=== PATIENT | female | born 1975 | race Caucasian/White ===

== ENCOUNTER 2016-11-20 07:57 | Outpatient (CLI) | payer OTHER ==
--- NOTE | 2016-11-20 15:28 | DIAGNOSTIC IMAGING REPORT ---
PROCEDURE: US ABDOMEN ULTRASOUND-COMPLETE INDICATION: LOWER ABD PAIN TECHNIQUE: Wright scale and color Doppler sonographic images of the abdomen were obtained without comparison. COMPARISON: None. FINDINGS: The liver is normal in size, contour, and echotexture. No mass or intrahepatic biliary dilatation. The gallbladder is filled with stones. The wall is normal thickness measuring 1.6 mm No pericholecystic fluid or Menjivar sign. The extrahepatic common duct is normal measuring 2.9 mm The visualized pancreas is normal without ductal dilatation or peripancreatic fluid collection. The abdominal aorta is normal in its course and caliber. The retrohepatic inferior vena cava is patent. There is appropriate hepatopetal flow in the portal vein. The right kidney measures 11.2 cm in length. The left kidney measures 11.4 cm in length. Both kidneys demonstrate normal morphology and cortical thickness without hydronephrosis, cyst, solid mass, or shadowing calculus. Color Doppler imaging demonstrates normal blood flow in each kidney. The spleen is normal in size measuring 11.8 cm in length. There is no perihepatic or perisplenic ascites. IMPRESSION: 1. Cholelithiasis
== END 2016-11-20 23:00 ==
LOC: US SRH 07:57
DX: K80.20 Calculus of gallbladder without cholecystitis without obstruction (principal)

== ENCOUNTER 2016-11-20 21:18 | Emergency (ER) | payer OTHER ==
--- NOTE | 2016-11-21 00:31 | ED CLINICAL REPORT ---
Clinical Report - Physicians/Mid Levels [facility] [address] [place] [address] 11/20/2016 21:18 Patient: ALPHONSO JIMÉNEZ Time Seen: 21:32. Arrived- By private vehicle. Historian- patient. HISTORY OF PRESENT ILLNESS Chief Complaint: ABDOMINAL PAIN. At its maximum, severity described as moderate. When seen in the E.D., severity described as moderate. Modifying factors- (BM and sometimes food worsen; nothing improves). It is described as "pain" and it is described as located in the periumbilical area. This started about 1 week ago. It is gone now. No nausea, loss of appetite or vomiting. She has had diarrhea. Similar symptoms previously: None. Recent medical care: The patient was seen recently at another facility. ( PT has already had labs and US done , showing cholelithiasis. She was sent here by the urgent care provider, who she states told her she may have diverticulitis.). REVIEW OF SYSTEMS No constipation, black stools, hematemesis, difficulty with urination or pain with urination. No urinary frequency, bloody stools, fever, headache or sore throat. No blurred vision, chest pain, difficulty breathing, cough or joint pain. No skin rash, chills or back pain. Denies current . All systems otherwise negative, except as recorded above. PAST HISTORY Problems: Diabetes Mellitus. Additional Surgeries: no known surgeries. Medications: MetFORMIN HCl Oral. Allergies: No Known Drug Allergy. SOCIAL HISTORY Former smoker. Occasional alcohol use. No drug use. ADDITIONAL NOTES The nursing notes have been reviewed. PHYSICAL EXAM Vital Signs: 11/20/2016 21:23 BP: 140/89. HR: 95. RR: 16. O2 saturation: 99%. Temp: 97.8 F. Have been reviewed. Appearance: Alert. Oriented X3. No acute distress. Eyes: Pupils equal, round and reactive to light. Eyes normal inspection. ENT: Nose normal. Neck: Normal inspection. CVS: Normal heart rate and rhythm. Heart sounds normal. Pulses normal. Respiratory: No respiratory distress. Breath sounds normal. Abdomen: Soft. Mild tenderness in the periumbilical area. No guarding or rebound tenderness. Back: Normal inspection. No CVA tenderness. Skin: Skin warm and dry. Normal skin color. No rash. Normal skin turgor. Extremities: Extremities exhibit normal ROM. No lower extremity edema. Neuro: Oriented X 3. No motor deficit. No sensory deficit. LABS, X-RAYS, AND EKG Abdominal CT: Normal aorta. Multiple gallstones in the gallbladder (no cholecystitis). Normal liver, spleen, pancreas, adrenals and kidneys. Uterus normal. Adnexa normal. Bladder normal. Appendix normal. No mass. No free fluid. No bony lesion. No diverticulitis. Study type: abdomen and pelvis. Abdominal CT performed with IV contrast. The study was independently viewed by me, interpreted by the radiologist and contemporaneously by me and discussed with the radiologist. Prior studies were not available for comparison. Laboratory Tests: CBC w Diff: (AUGUSTINE: 11/20/2016 21:27) ( [facility] 11/20/2016 21:47) Final results Test Result Flag Units (Reference) WHITE BLOOD COUNT 10.7 K/uL (4.5-11.5) RED BLOOD COUNT 4.89 M/uL (4.00-5.20) HEMOGLOBIN 14.3 gm/dL (12.0-16.0) HEMATOCRIT 43.4 % (36.0-46.0) MEAN CELL VOLUME 89 fL (80-100) MEAN CORPUSCULAR HGB 29 pg (26-34) MEAN CORPUSCULAR HGB CONC 33 g/dL (31-37) RED CELL DISTRIBUTION WIDTH 13.7 % (11.6-14.8) PLATELET COUNT 336 K/uL (150-400) NEUTROPHIL % 69.6 % (50-75) LYMPH % 24.8 L % (25-40) MONO % 3.7 % (3-14) EOSINOPHIL % 1.8 % (0-4) BASOPHIL % 0.1 % (0-2) CMP: (AUGUSTINE: 11/20/2016 21:27) ( [facility] 11/20/2016 22:28) Final results Test Result Flag Units (Reference) GLUCOSE 107 mg/dL (70-110) BUN 10 mg/dL (7-18) CREATININE 0.9 mg/dL (0.6-1.3) Estimated GFR >60 mL/min Estimated GFR- >60 mL/min Note: Persistent reduction over 3 months in eGFR<60 mL/min/1.73 m2 defines CKD. Patients with eGFR values>=60 mL/min/1.73 m2 may also have CKD if evidence ofpersistent proteinuria. Additional information may be foundat www.kidney.org. SODIUM 139 mmol/L (136-145) POTASSIUM 3.6 mmol/L (3.5-5.1) CHLORIDE 102 mmol/L (98-107) CARBON DIOXIDE 26 mmol/L (21-32) CALCIUM 9.5 mg/dL (8.5-10.1) TOTAL PROTEIN 7.5 g/dL (6.4-8.2) ALBUMIN 3.8 g/dL (3.3-5.0) BILIRUBIN, TOTAL 0.4 mg/dL (0.0-1.0) ALKALINE PHOSPHATASE 65 U/L (46-116) AST (SGOT) 14 L U/L (15-37) ALT (SGPT) 24 U/L (12-78) . Pulse Oximetry: 11/20/2016 21:23 O2 saturation: 99%. (FIO2 - room air). Interpretation: normal. PROGRESS AND PROCEDURES Course of Care: I d/w pt that the location of her pain is nonspecific. The most likely source is her gall bladder. However, pt was convinced this could not be the case, because the urgent care provider had suggested diverticulitis, and because BMs make it worse. I did d/w pt that the only diagnostic test we have in the ED that has not already been done is CT scan, which would give us a view of the other organs and structures in the abdomen. This was done, and negative, other than gallstones. Pt stated her doctor has put in a referral for surgery follow-up. We discussed dietary modifications, but pt stated she is on the ketogenic diet, and she does not want to alter this in any way. We have discussed signs of cholecystitis and indications for return. Patient counseled in person regarding the patient's stable condition, test results, diagnosis and need for follow-up. Concerns were addressed. Old medical records reviewed. Disposition: Discharged. Condition: stable. CLINICAL IMPRESSION Acute periumbilical abdominal pain of unknown cause. Biliary colic with multiple gallstones. No cholecystitis. INSTRUCTIONS Drink plenty of fluids. (Your CT scan shows gall stones, but no other abnormalities. There is no emergent condition causing your symptoms, but your gall bladder certainly can cause episodes of pain. Please follow up, as planned, to discuss having your gall bladder removed.). Warnings: Further evaluation is necessary. It is very important to follow up with a physician. GENERAL WARNINGS: Return or contact your physician immediately if your condition worsens or changes unexpectedly, if not improving as expected, or if other problems arise. Your Current Medications: CONTINUE TAKING THE FOLLOWING MEDICATIONS: MetFORMIN HCl Oral. Prescription Medications: Hydrocodone/APAP 5mg / 325mg: take 1-2 orally every 6 hours as needed for pain. Dispense twenty (20). No refill. Follow-up: Follow up with a surgeon. Call for the next available appointment. Reason for referral: Follow up for abdominal pain and gall stones. Understanding of the discharge instructions verbalized by patient. (Electronically signed by Shey Rogers MD 11/24/2016 9:31)
--- NOTE | 2016-11-21 00:32 | ED NURSING NOTES ---
Clinical Report - Nurses [facility] [place] [address] 11/20/2016 21:18 Patient: ALPHONSO JIMÉNEZ TRIAGE Triage time 21:23. Acuity: LEVEL 3. Chief Complaint: ABDOMINAL PAIN and DIARRHEA. 21:26 11/20/16. Alert. No acute distress. BENJAMIN COMA SCORE: Wor[place] Coma Scale: 15- eyes open spontaneously (4); best verbal response- oriented x 4 (5); best motor response- obeys commands (6). --21:26 Susan Engel R.N. 21:23 11/20/16. BP: 140/89. HR: 95. RR: 16. O2 saturation: 99% on room air. Temp: 97.8 F (oral). Pain level now 0/10. --21:26 Susan Engel R.N. Weight: 93.4 kg stated. Height/Length: 64 inches Per Patient. BMI: 35.4. --21:24 Susan Engel R.N. Medications MetFORMIN HCl Oral. --21:25 Susan Engel R.N. Allergies No Known Drug Allergy. --21:25 Susan Engel R.N. Medication/allergy information source: the patient. --21:26 Susan Engel R.N. History Arrived by private vehicle. Historian: patient. Primary physician ([facility]). ( abd pain x1 week. Pain 7/10 following eating or having a BM.). Onset. (1 weeks ago). 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 PAST MEDICAL HX: Last normal menstrual period now. Denies current . SOCIAL HX: Former smoker, end date 2014. Occasional alcohol use. No drug use. ABUSE ASSESSMENT: Abuse assessment: The patient was asked "Do you feel safe in your home?". No report of abuse. FALL RISK ASSESSMENT: Fall risk assessment completed. No fall risk identified. NUTRITIONAL RISK ASSESSMENT: The nutritional risk assessment revealed no deficiencies. FUNCTIONAL ASSESSMENT: Functional assessment: no impairments noted. LEARNING NEEDS ASSESSMENT: The learning needs assessment revealed no barriers. SKIN INTEGRITY ASSESSMENT: Skin integrity risk assessment completed. No skin integrity risk identified. --21:26 Susan Engel R.N. ( Last BM this afternoon). Last oral intake by patient was (8 hours ago). --21:27 Susan Engel R.N. PROBLEMS: Diabetes Mellitus. --21:25 Susan Engel R.N. ADDITIONAL SURGERIES: no known surgeries. Interventions ID band on patient. To treatment room. --21:26 Susan Engel R.N. PHYSICAL ASSESSMENT Ambulatory to room. GENERAL / NEURO / PSYCH: Alert. Oriented X 4. Appears in no acute distress. HEENT: Mucous membranes are pink. RESPIRATORY: Respirations not labored. CVS: Capillary refill less than 2 seconds. GI / : Abdomen soft and nontender. SKIN: Skin is warm and dry. --21:27 Susan Engel R.N. NURSING PROGRESS NOTES :11/20/16. The plan of care for this patient has been created. Patient gowned. Head of bed elevated. Call light placed in reach. Bed placed in lowest position. Brakes of bed on. Patient ready for evaluation- chart flagged. --21:27 Susan Engel R.N. 21:30 11/20/2016 Site #1 started via IV in the left antecubital space with an 20g angiocath, with aseptic technique and good blood return; one attempt. Blood drawn: rainbow set. Labeled in the presence of the patient and sent to the lab. Saline lock flushed with 10 mL saline. --21:30 Mary Reeves R.N. 21:37 11/20/2016 Started bag #1 1000 mL IV Fluids IV NS (Saline); at 999 mL/hr over 1 hour(s) via site #1 via IV pump. Allergies verified and confirmed 5 rights. IV patency established. IV site checked: no pain, redness, or swelling. IV flushed thoroughly pre- and post-medication administration. --21:37 Mary Reeves R.N. 22:40 11/20/16. Assisted patient to bathroom, to ambulate and back to bed; tolerated well. The patient reports no complaints and she is calm and resting quietly. --22:40 Susan Engel R.N. 22:50 11/20/16. Checked patient name, birthdate and medical record number: patient confirmed. Instructions provided to collect clean catch urine and patient verbalized understanding. Clean catch urine collected with return of yellow-colored clear urine; odor is normal; sample sent to lab for urinalysis and culture. Specimen labeled in the presence of the patient. --22:51 Juan Pablo Lopes R.N. 23:28 11/20/16. ( vitals deferred, Pt in CT). --23:28 Susan Engel R.N. 23:30 11/20/16. Patient walked back to ED from CT with tech. --23:30 Susan Engel R.N. 23:33 11/20/16. BP: 135/95. HR: 82. RR: 17. Pain level now 0/10. --23:33 Susan Engel R.N. 23:45 11/20/2016 IV Fluids IV NS Discontinued: bag #1 infused. Total amount infused: 1000 mL. IV patency established. IV site checked: no pain, redness, or swelling. IV flushed thoroughly. --00:45 Susan Engel R.N. DISPOSITION / DISCHARGE 00:39 11/21/2016 Site #1 removed upon discharge. Catheter intact. Bandage applied. --00:44 Susan Engel R.N. 00:43 11/21/16. Departure time: 1241. Condition at departure: unchanged and stable. ( MD aware of discharge BP). No learning barriers present. Discharge instructions provided and reviewed with the patient. Reviewed medication(s) side effects, precautions, dosing and course information. Prescription(s) given to the patient. Patient verbalized understanding. Written instructions provided in Turkish. The patient was discharged by the physician. She was discharged home. She left the Emergency Department ambulatory and via private vehicle. Patient driving. --00:44 Susan Engel R.N. 00:42 11/21/16. BP: 156/110. HR: 89. RR: 18. O2 saturation: 100% on room air. Temp: 98.6 F (oral). Pain level now 0/10. --00:44 Susan Engel R.N. Locked/Released at 11/21/2016 5:53 by Juan Pablo Lopes R.N.
--- NOTE | 2016-11-21 00:32 | ED ORDER SUMMARY ---
..... Patient: ALPHONSO JIMÉNEZ OrderSheet [facility] VisitID: [id number] [place] [address] 40y, F Registration Date/Time: 11/20/2016 ORDER SHEET Weight: 93.4 kg (stated) Allergies: No Known Drug Allergy GENERAL ORDERS: CBC w Diff Urgent (21:33 11/20/2016 Mishel GRIMM) (Ack 21:38 AMcQuoid ER Tech1) (21:59 MWinterer R.N.) CMP Urgent (21:33 11/20/2016 Mishel GRIMM) (Ack 21:38 AMcQuoid ER Tech1) (21:59 MWinterer R.N.) CT Abd/Pel w Cont (No) (N/A) Urgent (23:07 11/20/2016 Mishel GRIMM) (Ack 23:15 AMcQuoid ER Tech1) (23:28 KWilliams R.N.) MEDICATION ORDERS: IV FLUIDS: IV NS : initial bolus 1000 mL (1000 mL/hr), then none - (NOW) (21:33 11/20/2016 Mishel GRIMM) (Ack 21:33 MWinterer R.N.) (21:37 MWinterer R.N.) ORDER SHEET NOTES: [Electronically signed by Juan Pablo Lopes R.N. (05:53 11/21/2016)] [Electronically signed by Shey Rogers MD (09:31 11/24/2016)] [Electronically locked/signed by Juan Pablo Lopes R.N. (05:53 11/21/2016)]
--- NOTE | 2016-11-21 00:32 | ED ORDER SUMMARY ---
..... Patient: ALPHONSO JIMÉNEZ OrderSheet [facility] VisitID: [id number] [place] [address] 40y, F Registration Date/Time: 11/20/2016 ORDER SHEET Weight: 93.4 kg (stated) Allergies: No Known Drug Allergy GENERAL ORDERS: CBC w Diff Urgent (21:33 11/20/2016 Mishel GRIMM) (Ack 21:38 AMcQuoid ER Tech1) (21:59 MWinterer R.N.) CMP Urgent (21:33 11/20/2016 Mishel GRIMM) (Ack 21:38 AMcQuoid ER Tech1) (21:59 MWinterer R.N.) CT Abd/Pel w Cont (No) (N/A) Urgent (23:07 11/20/2016 Mishel GRIMM) (Ack 23:15 AMcQuoid ER Tech1) (23:28 KWilliams R.N.) MEDICATION ORDERS: IV FLUIDS: IV NS : initial bolus 1000 mL (1000 mL/hr), then none - (NOW) (21:33 11/20/2016 Mishel GRIMM) (Ack 21:33 MWinterer R.N.) (21:37 MWinterer R.N.) ORDER SHEET NOTES: [Electronically signed by Juan Pablo Lopes R.N. (05:53 11/21/2016)] [Electronically signed by Shey Rogers MD (09:31 11/24/2016)] [Electronically locked/signed by Juan Pablo Lopes R.N. (05:53 11/21/2016)]
--- NOTE | 2016-11-21 00:34 | DIAGNOSTIC IMAGING REPORT ---
PROCEDURE: CT ABD/PELVIS WITH CONTRAST INDICATION: Upper and lower abdominal pain. Gallstones. TECHNIQUE: Noncontrast axial images with sagittal and coronal reformations. COMPARISON: Comparison is made to abdominal ultrasound on 11/20/2016. FINDINGS: ABDOMEN: Gallbladder is contracted with multiple gallstones. No evidence of gallbladder wall thickening. Liver, spleen, pancreas, kidneys, and aorta are normal. Bowel pattern is normal, including appendix. Mild levoscoliosis and degenerative changes of the lumbar spine. PELVIS: Mild to moderate sigmoid diverticulosis, but no evidence of diverticulitis. There is a T-shaped IUD which is located in the endocervix and protrudes into the upper vagina. Uterus and adnexal structures are otherwise normal. IMPRESSION: 1. Cholelithiasis (multiple gallstones) with contracted gallbladder (appears chronic). 2. Otherwise negative CT abdomen. 3. Mild levoscoliosis and degenerative change of the lumbar spine. 4. Mild to moderate sigmoid diverticulosis, but no evidence of diverticulitis. 5. There is a T-shaped IUD which is located in the endocervix (suboptimal position). 6. Findings discussed with Dr. Shey Rogers. All CT scans at this facility use dose modulation, iterative reconstruction, and/or weight-based dosing when appropriate to reduce radiation dose to as low as reasonably achievable.
--- NOTE | 2016-11-24 09:31 | ED DISCHARGE INSTRUCTIONS ---
Patient: ALPHONSO JIMÉNEZ General Instructions [facility] VisitID: [id number] [place] [address] 40y, F Registration Date/Time: 11/20/2016 Acute periumbilical abdominal pain of unknown cause. Biliary colic with multiple gallstones. No cholecystitis. INSTRUCTIONS Drink plenty of fluids. (Your CT scan shows gall stones, but no other abnormalities. There is no emergent condition causing your symptoms, but your gall bladder certainly can cause episodes of pain. Please follow up, as planned, to discuss having your gall bladder removed.). Warnings: Further evaluation is necessary. It is very important to follow up with a physician. GENERAL WARNINGS: Return or contact your physician immediately if your condition worsens or changes unexpectedly, if not improving as expected, or if other problems arise. Your Current Medications: CONTINUE TAKING THE FOLLOWING MEDICATIONS: MetFORMIN HCl Oral. Prescription Medications: Hydrocodone/APAP 5mg / 325mg: take 1-2 orally every 6 hours as needed for pain. Dispense twenty (20). No refill. Follow-up: Follow up with a surgeon. Call for the next available appointment. Reason for referral: Follow up for abdominal pain and gall stones. Understanding of the discharge instructions verbalized by patient. ADDITIONAL INFORMATION Abdominal Pain, Unknown Cause (Female) The exact cause of your abdominal (stomach) pain is not certain. This does not mean that this is something to worry about, or the right tests were not done. Everyone likes to know the exact cause of the problem, but sometimes with abdominal pain, there is no clear-cut cause, and this could be a good thing. The good news is that your symptoms can be treated, and you will feel better. Your condition does not seem serious now; however, sometimes the signs of a serious problem may take more time to appear. For this reason,it is important for you to watch for any new symptoms, problems,or worsening of your condition. Over the next few days, the abdominal pain may come and go, or be continuous. Other common symptoms can include nausea and vomiting. Sometimes it can be difficult to tell if you feel nauseous, you may just feel bad and not associate that feeling with nausea. Constipation, diarrhea, and a fever may go along with the pain. The pain may continue even if treated correctly over the following days. Depending on how things go, sometimes the cause can become clear and may require further or different treatment. Additional evaluations, medications, or tests may be needed. Home care Your health care provider may prescribe medications for pain, symptoms, or an infection. Follow the health care provider's instructions for taking these medications. General care Rest until your next exam. No strenuous activities. Try to find positions that ease discomfort. A small pillow placed on the abdomen may help relieve pain. Something warm on your abdomen (such as a heating pad) may help, but be careful not to burn yourself. Diet Do not force yourself to eat, especially if having cramps, vomiting, or diarrhea. Water is important so you do not get dehydrated. Soup may also be good. Sports drinks may also help, especially if they are not too acidic. Make sure you don't drink sugary drinks as this can make things worse. Take liquids in small amounts. Do not guzzle them. Caffeine sometimes makes the pain and cramping worse. Avoid dairy products if you have vomiting or diarrhea. Don't eat large amounts at a time. Wait a few minutes between bites. Eat a diet low in fiber (called a low-residue diet). Foods allowed include refined breads, white rice, fruit and vegetable juices without pulp, tender meats. These foods will pass more easily through the intestine. Avoid whole-grain foods, whole fruits and vegetables, meats, seeds and nuts, fried or fatty foods, dairy, alcohol and spicy foods until your symptoms go away. Follow-up care Follow up with your health care provider as instructed, or if your pain does not begin to improve in the next 24 hours. When to seek medical care Seek prompt medical care if any of the following occur: Pain gets worse or moves to the right lower abdomen New or worsening vomiting or diarrhea Swelling of the abdomen Unable to pass stool for more than three days Fever of 100.4F (38C) or higher, or as directed by your healthcare provider. Blood in vomit or bowel movements (dark red or black color) Jaundice (yellow color of eyes and skin) Weakness, dizziness Chest, arm, back, neck or jaw pain Unexpected vaginal bleeding or missed period Call 911 Call emergency services if any of the following occur: Trouble breathing Confusion Fainting or loss of consciousness Rapid heart rate Seizure GallstonesWith Biliary Colic [Confirmed Dx] The abdominal pain that you have today is due to spasm of the gallbladder. The gallbladder is a small sac under the liver which stores and releases bile. Bile is a fluid that aids in the digestion of fat. A gallstone may form inside the gallbladder and block the flow of bile fluid. This causes mild to severe crampy pain in the mid or right upper abdomen with nausea and vomiting. Home Care: Rest in bed and follow a clear liquid diet until feeling better. If pain or nausea medicine was given to help with your symptoms, take these as directed. Fat in your diet makes the gallbladder contract and may cause increased pain. Therefore, avoid fat in your diet over the next two days and follow a low-fat diet after that. If you are overweight, a low-fat diet will also help you lose weight. Follow Up with your doctor. There is a 50% chance that you will have another episode of pain from your gallstones during the next 2 years. Removal of the gallbladder is the treatment of choice to prevent this. Schedule an appointment with your own doctor during the next week to discuss the treatment options. Get Prompt Medical Attention if any of the following occur: Pain gets worse or moves to the right lower abdomen Repeated vomiting Swelling of the abdomen Pain lasts over 6 hours Fever of 100.4F (38C) or higher, or as directed by your healthcare provider Weakness, dizziness or fainting Dark urine or light colored stools Yellow color of the skin or eyes Chest, arm, back, neck or jaw pain You have been given the following additional information: Abdominal Pain, Unknown Cause, (Female) Biliary Colic With Gallstone (Confirmed) (Electronically signed by Shey Rogers MD 11/24/2016 9:31)
--- NOTE | 2016-11-24 09:32 | ED MAR SUMMARY ---
..... Medication Administration Record [facility] [address] [place] [address] Patient: ALPHONSO JIMÉNEZ Visit ID: [id number] 40y, F Weight: 93.4 kg Height/Length: 64 in BMI: 35.4 ALLERGIES: No Known Drug Allergy Start 21:37 11/20/2016 Mary Reeves RMara, Stop 23:45 11/20/2016 Susan Engel RMara Medication Administered: IV NS (SALINE), Dose: IV Fluids over 1 hour(s), Rate: 999 mL/hr, Dispensed: 1000 mL bag, Site: #1 left AC. Medication Ordered: IV NS : initial bolus 1000 mL (1000 mL/hr), then none - (NOW).
--- NOTE | 2016-11-24 09:32 | ED MED RECONCILIATION SUMMARY ---
Patient: ALPHONSO JIMÉNEZ Medication Reconciliation Report [facility] VisitID: [id number] [address] [place] [address] 40y, F Registration Date/Time: 11/20/2016 Weight: 93.4 kg Height/Length: 64 in. BMI: 35.4 ALLERGIES: No Known Drug Allergy The patient's Home Medications are listed below: CONTINUE TAKING THE FOLLOWING MEDICATIONS: MetFORMIN HCl Oral The source(s) of the original Home Medication information: patient The following Medications were given to the patient in the Emergency Department: IV NS IV Fluids bolus 0, then 999 mL/hr, administered: 11/20/2016 9:37:00 PM The following Medications were prescribed to the patient: Hydrocodone/APAP 5mg / 325mg: take 1-2 orally every 6 hours as needed for pain. Dispense twenty (20). No refill. -- Shey Rogers MD
--- NOTE | 2016-11-24 09:32 | ED MAR SUMMARY ---
..... Medication Administration Record [facility] [address] [place] [address] Patient: ALPHONSO JIMÉNEZ Visit ID: [id number] 40y, F Weight: 93.4 kg Height/Length: 64 in BMI: 35.4 ALLERGIES: No Known Drug Allergy Start 21:37 11/20/2016 Mary Reeves RMara, Stop 23:45 11/20/2016 Susan Engel RMara Medication Administered: IV NS (SALINE), Dose: IV Fluids over 1 hour(s), Rate: 999 mL/hr, Dispensed: 1000 mL bag, Site: #1 left AC. Medication Ordered: IV NS : initial bolus 1000 mL (1000 mL/hr), then none - (NOW).
--- NOTE | 2016-11-24 09:32 | ED MED RECONCILIATION SUMMARY ---
Patient: ALPHONSO JIMÉNEZ Medication Reconciliation Report [facility] VisitID: [id number] [address] [place] [address] 40y, F Registration Date/Time: 11/20/2016 Weight: 93.4 kg Height/Length: 64 in. BMI: 35.4 ALLERGIES: No Known Drug Allergy The patient's Home Medications are listed below: CONTINUE TAKING THE FOLLOWING MEDICATIONS: MetFORMIN HCl Oral The source(s) of the original Home Medication information: patient The following Medications were given to the patient in the Emergency Department: IV NS IV Fluids bolus 0, then 999 mL/hr, administered: 11/20/2016 9:37:00 PM The following Medications were prescribed to the patient: Hydrocodone/APAP 5mg / 325mg: take 1-2 orally every 6 hours as needed for pain. Dispense twenty (20). No refill. -- Shey Rogers MD
== END 2016-11-21 00:45 | disposition home or self-care (01) ==
LOC: ED SRH 21:18
DX: R10.33 Periumbilical pain (principal); K80.51 Calculus of bile duct without cholangitis or cholecystitis with obstruction; E11.9 Type 2 diabetes mellitus without complications; Z87.891 Personal history of nicotine dependence; Z79.84 Long term (current) use of oral hypoglycemic drugs
CPT/HCPCS: 90100; 95059